=== PATIENT | male | born 1955 | race Caucasian/White ===

== ENCOUNTER → 2017-09-10 | Outpatient (CLI) | payer OTHER ==
--- NOTE | 2017-09-10 14:17 | Diagnostic Imaging Report ---
PROCEDURE: MR angiography of the brain without the use of contrast. TECHNIQUE: 3D kyvv-[id number]-[id number] non contrast enhanced MR angiography of the head was performed. A source data was reformatted into rotating MIP projections. INDICATION: Blurred vision and headaches. COMPARISON: No prior studies are available for comparison. FINDINGS: Distal internal carotid arteries are unremarkable. There is blood flow in the anterior, middle and posterior cerebral arteries. Basilar tip is unremarkable. Anterior communicating artery and middle cerebral arteries are unremarkable, without evidence of aneurysm formation. No intracranial stenosis is seen. Basilar and distal vertebrals are patent. IMPRESSION: Unremarkable MRA of the brain. Dictated by: Dictated on workstation # [id number]
== END ==
LOC: RAD 11:13
DX: H53.8 Other visual disturbances (principal); R51 Headache; R42 Dizziness and giddiness; R41.3 Other amnesia
CPT/HCPCS: 70544

== ENCOUNTER → 2021-02-04 | Outpatient (CLI) | payer MEDICARE, OTHER | LOC: CARD 15:00 | PROVIDERS: ATTEND Internal Medicine Cardiovascular Disease | DX: I51.7 Cardiomegaly (principal); I35.8 Other nonrheumatic aortic valve disorders | CPT/HCPCS: 93306 ==

== ENCOUNTER 2021-03-25 05:34 | Outpatient (CLI) | payer MEDICARE, OTHER ==
[~2021-03-25] VITALS: Ht 180.3 cm; Wt 95.3 kg
[2021-03-25] MEDS ORDERED: OMG1KC PO (13:12)
[2021-03-25] MEDS ORDERED: LISI40TA9 PO (13:12)
[2021-03-25] MEDS ORDERED: CYCL10TA9 PO (13:12)
[2021-03-25] MEDS ORDERED: ASPI-999 PO (13:12)
[2021-03-25] MEDS ORDERED: METF-399 PO (13:12)
[2021-03-25] MEDS ORDERED: MELO10CA3 PO (13:12)
[2021-03-25] MEDS ORDERED: [UNRECOGNIZED DRUG - CODE] PO (13:12)
== END 2021-03-25 15:05 | disposition home or self-care (01) ==
LOC: PREOP 05:34
PROVIDERS: ATTEND Surgery
DX: Z01.818 Encounter for other preprocedural examination (principal)

== ENCOUNTER 2021-04-01 08:13 | Day surgery (SDC) | payer MEDICARE, OTHER ==
[~2021-04-01] VITALS: Ht 180 cm; Wt 95.0 kg
[~2021-04-01 08:13] MED LIST: ASPI-999 PO; CYCL10TA9 PO; LISI40TA9 PO; MELO10CA3 PO; METF-399 PO; OMG1KC PO; [UNRECOGNIZED DRUG - CODE] PO
[2021-04-01] MEDS ORDERED: LACTATED RINGERS 1,000 ML IV STA (08:15)
[2021-04-01] MEDS ORDERED: LACTATED RINGERS 1,000 ML IV ONE (08:18)
[2021-04-01 08:25] VITALS: BP 162/85
[2021-04-01] MEDS ORDERED: proPOfol 200 MG/20 ML (DIPRIVAN) VIAL IV ONE (10:05)
[2021-04-01] MEDS ORDERED: MIDAZOLAM 2 MG/2 ML (VERSED) VIAL ONE (10:16)
--- NOTE | 2021-04-01 10:45 | Progress Note-Post Operative ---
Post-Operative Progess Note Surgeon (s)/Residential Advisor (s) Surgeon BILL BUCKLEY DO Residential Advisor: na Pre-Operative Diagnosis screening colonoscopy Post-Operative Diagnosis colon polyps Procedure & Operative Findings Date of Procedure 04/01/21 Procedure Performed/Findings colonoscopy c hot bx polypectomy x 4 Anesthesia Type per cottage parent Estimated Blood Loss Estimated blood loss (mL): none Specimens/Packing Specimens Removed colon polyps BILL BUCKLEY DO Apr 01, 2021 10:45
--- NOTE | 2021-04-01 10:46 | Discharge Inst-Simple/Standard ---
Discharge Inst-Standard Patient Instructions/Follow Up Plan of Care/Instructions/FU: 2 weeks Brendon Activity as Tolerated: Yes Discharge Diet: Regular Diet BILL BUCKLEY DO Apr 01, 2021 10:46
[2021-04-01 10:48] VITALS: BP 141/72
[2021-04-01 10:53] VITALS: BP 137/71
[2021-04-01 10:55] VITALS: BP 150/72
[2021-04-01 11:25] VITALS: BP 142/72
--- NOTE | 2021-04-01 13:40 | Anesthesia-General Post-Op ---
MAC Patient Condition Mental Status/LOC: Same as Preop Cardiovascular: Satisfactory Nausea/Vomiting: Absent Respiratory: Satisfactory Pain: Controlled Complications: Absent Post Op Complications Complications None Follow Up Care/Instructions Patient Instructions None needed. Anesthesiology Discharge Order Discharge Order Patient is doing well, no complaints, stable vital signs, no apparent adverse anesthesia problems. No complications reported per nursing. MILLICENT JONES CRNA Apr 01, 2021 13:40
--- NOTE | 2021-04-01 15:24 | OPERATIVE REPORT ---
DATE OF SERVICE: 04/01/2021 PREOPERATIVE DIAGNOSIS: Screening colonoscopy. POSTOPERATIVE DIAGNOSIS: Colon polyps. PROCEDURES PERFORMED: Colonoscopy with hot biopsy polypectomy x4. SURGEON: Bill Olivas DO. ANESTHESIA: Per SCHOOL AGE TEACHER. ESTIMATED BLOOD LOSS: None. COMPLICATIONS: None. INDICATIONS FOR PROCEDURE: The patient is a 66-year-old male needing screening colonoscopy. He understands the risks and benefits of the procedure and wished to proceed with procedure. Consent was signed in the chart. DESCRIPTION OF PROCEDURE: The patient was taken to the endoscopy suite and placed in the left lateral recumbent position. Timeout was performed. Digital rectal exam was performed. There were no palpable polyps, masses or ulcerations. Scope was inserted in the rectum, advanced all the way to cecum with minimal difficulty. Prep was adequate. Scope was then slowly retracted back. There were no polyps, masses or ulcerations within the cecum. In the ascending colon, a small polyp was present, which hot biopsy polypectomy was performed. Scope was then continuously retracted back. No polyps, masses or ulcerations in the ascending, transverse and descending colon. In sigmoid colon, there were three polyps present, which hot biopsy polypectomy was performed. Scope was then continuously retracted back into the rectum, where it was retroflexed noting no other pathology. Scope was returned to its normal position, slowly withdrawn until completely removed. The patient tolerated the procedure well without any complications. He was taken to recovery room in a stable condition. RECOMMENDATIONS: The patient will need repeat colonoscopy in five years. Any issues before that be seen at that time. The patient will follow up on pathology in two weeks. CC: Marysol Dubois APRN - requested, unable to deliver. Job ID: [id number] DocumentID: [id number] Dictated Date: 04/01/2021 10:48:10 Prosthetic Technician Date: 04/01/2021 15:24:09 Dictated By: BILL OLIVAS DO
== END 2021-04-01 11:25 | disposition home or self-care (01) ==
LOC: ENDO 08:13
PROVIDERS: ATTEND Surgery
DX: Z12.11 Encounter for screening for malignant neoplasm of colon (principal); D12.2 Benign neoplasm of ascending colon; K63.5 Polyp of colon; I10 Essential (primary) hypertension; E11.9 Type 2 diabetes mellitus without complications; Z87.891 Personal history of nicotine dependence; Z79.02 Long term (current) use of antithrombotics/antiplatelets; Z79.82 Long term (current) use of aspirin; Z79.84 Long term (current) use of oral hypoglycemic drugs; Z79.899 Other long term (current) drug therapy; Z79.891 Long term (current) use of opiate analgesic; Z80.52 Family history of malignant neoplasm of bladder; Z83.3 Family history of diabetes mellitus
CPT/HCPCS: 88305

== ENCOUNTER 2021-08-17 17:11 | Emergency (ER) | payer MEDICARE, OTHER ==
[~2021-08-17] VITALS: Ht 180.3 cm; Wt 95.3 kg
[~2021-08-17 17:11] MED LIST changes: +CYCL10TA25 PO; -CYCL10TA9 PO
--- NOTE | 2021-08-17 17:54 | ED General ---
General Stated Complaint: INHALED BUG SPRAY Source of Information: Patient Exam Limitations: No Limitations History of Present Illness Date Seen by Provider: Aug 17, 2021 Time Seen by Provider: 17:50 Initial Comments To ER by private vehicle with reports of accidental inhalation of "photographer assistant" bug bomb. He was setting this off in his attic, took a few breaths and inhaled some as he was crawling out of the attick at 1655. Had red eyes, shortness of breath and difficulty breathing. He is back to baseline now. No underlying lung disease Timing/Duration: 1 Hour Severity: Moderate Associated Systoms: Denies Symptoms Allergies and Home Medications Allergies Coded Allergies: Sulfa (Sulfonamide Antibiotics) (Unverified Allergy, Unknown, 03/25/21) Patient Home Medication List Home Medication List Reviewed: Yes Aspirin (Aspirin) 81 Mg Tab.chew, 81 MG PO DAILY, (Reported) Entered as Reported by: SHANTE ELENA on 03/25/211311 Cyclobenzaprine HCl (Cyclobenzaprine HCl) 10 Mg Tablet, 10 MG PO TID, (Reported) Entered as Reported by: SHANTE ELENA on 03/25/21 131 Lisinopril (Lisinopril) 40 Mg Tablet, 40 MG PO DAILY, (Reported) Entered as Reported by: SHANTE ELENA on 03/25/21 131 Meloxicam, Submicronized (Meloxicam) 10 Mg Capsule, 15 MG PO, (Reported) Entered as Reported by: SHANTE ELENA on 03/25/21 131 Metformin HCl (Metformin HCl) 1,000 Mg Tablet, 1,000 MG PO BID, (Reported) Entered as Reported by: SHANTE ELENA on 03/25/21 131 Nabumetone (Relafen) 500 Mg Tablet, 500 MG PO DAILY, (Reported) Entered as Reported by: SHANTE ELENA on 03/25/21 131 [place] 3 Polyunsat Fatty Acids (Fish Oil 1,000 mg Capsule) 1,000 Mg Cap, 1,000 MG PO DAILY, (Reported) Entered as Reported by: SHANTE ELENA on 03/25/21 131 Review of Systems Review of Systems Constitutional: see HPI EENTM: see HPI Respiratory: no symptoms reported Cardiovascular: no symptoms reported Genitourinary: no symptoms reported Musculoskeletal: no symptoms reported Skin: no symptoms reported Psychiatric/Neurological: No Symptoms Reported Hematologic/Lymphatic: No Symptoms Reported Immunological/Allergic: no symptoms reported Past Qlklsdh-Ueenzm-Tldmli Hx Immunizations Up To Date First/Initial COVID19 Vaccinat: YES Second COVID19 Vaccination Job: YES Seasonal Allergies Seasonal Allergies: No Past Medical History Surgeries: No Respiratory: No Cardiac: Yes Hypertension Neurological: No Genitourinary: No Gastrointestinal: No Musculoskeletal: No Endocrine: No HEENT: No Cancer: No Psychosocial: No Integumentary: No Blood Disorders: No Physical Exam Vital Signs Vital Signs - First Documented 08/17/21 17:45 O2 Delivery Room Air Capillary Refill : Height, Weight, BMI Height: '" Weight: lbs. oz. kg; 29.32 BMI Method: General Appearance: No Apparent Distress, WD/WN, Anxious Eyes: Bilateral Eye Normal Inspection, Bilateral Eye PERRL, Bilateral Eye EOMI HEENT: Other (No excessive tearing or watery eyes. No conjunctivitis. Lungs are clear without wheezing or stridor.) Neck: Full Range of Motion, Normal Inspection Respiratory: No Accessory Muscle Use, No Respiratory Distress Gastrointestinal: Normal Bowel Sounds, Non Tender, Soft Extremity: Normal Capillary Refill, Normal Inspection Neurologic/Psychiatric: Alert, Oriented x3 Skin: Normal Color, Warm/Dry Progress/Results/Core Measures Suspected Sepsis SIRS Temperature: Pulse: Respiratory Rate: Blood Pressure / Mean: Results/Orders Vital Signs/I&O 08/17/21 17:45 O2 Delivery Room Air Capillary Refill : Departure Communication (Admissions) I spoke with poison control. They state that the irritant to the airways is likely the propellant for this bug bomb and not the actual insecticide within it which is tetramethin and cypermethrin. They recommend discharged home, they can call him in a few hours to check on him but this should be of no concern. Impression Primary Impression: Airway irritation Disposition: HOME, SELF-CARE Condition: Stable Departure-Patient Inst. Decision time for Depature: 17:56 Referrals: NO,LOCAL PHYSICIAN (PCP) Primary Care Physician LAUREN THORNTON APRN (Family) Primary Care Physician Patient Instructions: NO INSTRUCTIONS GIVEN Add. Discharge Instructions: 1. Return to ER for any concerns. Follow-up with your doctor next week. GILBERTO ROBERTS APRN Aug 17, 2021 17:54
[2021-08-17 18:07] VITALS: BP 196/99
== END 2021-08-17 18:07 | disposition home or self-care (01) ==
LOC: EDUNIT# 17:11 → ER 17:14
DX: J98.8 Other specified respiratory disorders (principal); I10 Essential (primary) hypertension; Z79.82 Long term (current) use of aspirin; Z79.899 Other long term (current) drug therapy
CPT/HCPCS: 99282

== ENCOUNTER → 2022-06-29 | Outpatient (CLI) | payer MEDICARE, OTHER ==
--- NOTE | 2022-06-29 10:03 | Diagnostic Imaging Report ---
PROCEDURE: MRI lumbar spine. TECHNIQUE: Multiplanar, multisequence MRI of the lumbar spine was performed without contrast. INDICATION: Chronic low back pain. COMPARISON: None FINDINGS: For the purposes of this exam, last well-formed disc space is noted at the L5-S1 level. Static alignment is maintained. There is no significant anteroretrolisthesis. There is no evidence of jumped facets. Vertebral body heights are preserved. There is no evidence of acute fracture. Marrow signal is normal throughout. Intervertebral disc heights are fairly well-maintained. Visualized portions of distal cord are unremarkable. Conus terminates at approximately the L1 level. No abnormal intrathecal filling defects are seen. Pre and paravertebral soft tissue structures are unremarkable. Axial images demonstrate the following: T12-L1 through L3-L4: There is no large disc bulge or focal protrusion. There is mild multilevel ligamentum flavum laxity and/or facet arthropathy, but no significant spinal canal or neuroforaminal stenosis. L4-L5: There is mild broad-based posterior disc bulge with bilateral ligamentum laxity and facet arthropathy. As a result, there is minimal narrowing of the spinal canal and mild narrowing of bilateral neural foramen. L5-S1: There is no large disc bulge or focal protrusion. There is bilateral facet arthropathy, but no significant spinal canal or neuroforaminal stenosis. IMPRESSION: 1. Mild degenerative changes of the lumbar spine. No significant spinal canal or neuroforaminal stenosis. 2. No acute fracture or dislocation. Dictated by: Dictated on workstation # [id number]
== END ==
LOC: RAD 07:44
PROVIDERS: ATTEND Nurse Practitioner Family
DX: M47.816 Spondylosis without myelopathy or radiculopathy, lumbar region (principal)
CPT/HCPCS: 72148